=== PATIENT | female | born 1955 | race Caucasian/White ===

== ENCOUNTER 2016-06-12 07:10 | Day surgery (SDC) | payer OTHER ==
[~2016-06-12] VITALS: Ht 157.5 cm; Wt 60.3 kg
[~2016-06-12 07:10] MED LIST: 0.9% Sodium Chloride 1,000 ML IV SCH; ESTR0.5T; MEDR2.5T7 PO; Sodium Chloride LOK Flush 10 mL Syringe IV PRN; fentaNYL-PF 50 mCg/mL 2 mL Inj IVPUSH PRN
[2016-06-12 07:38] VITALS: BP 145/92; PULSE 78; RESP 14; O2SAT 99
[2016-06-12 08:18] VITALS: BP 125/71; PULSE 65; RESP 14; O2SAT 97
[2016-06-12 08:30] VITALS: BP 110/73; PULSE 72; RESP 14; O2SAT 98
[2016-06-12 08:37] VITALS: BP 111/79; PULSE 74; RESP 14; O2SAT 98
--- NOTE | 2016-06-12 08:39 | ENDO ---
[address] [address] ENDOSCOPY PROCEDURE PATIENT: JOHNNIE AMADO : 1955 MR#: [id number] ADMIT: 06/12/2016 JOB ID: [id number] DATE: 06/12/2016 PROCEDURE: Colonoscopy. INDICATIONS: Screening. The patient's ASA classification was 1. Mallampati score was 1. MEDICATIONS: 1. Versed 5 mg. 2. Fentanyl 100 mcg. INSTRUMENT USED: PCF H 190 L. PREPARATION QUALITY: Was good. PROCEDURE DETAILS: After informed consent was obtained, the patient was brought into the GI suite, where she was placed on oxygen via nasal cannula and monitored with continuous pulse oximeter, telemetry and blood pressure monitoring. A time-out was performed. Then, she was placed in the left lateral decubitus position. Medications were administered for sedation. A digital rectal exam was performed, which was unremarkable. The colonoscope was then inserted into the rectum and advanced under direct visualization to the cecum, which was identified by the presence of the ileocecal valve and appendiceal orifice. Once the cecum was reached, the colonoscope was withdrawn back into the rectum as the mucosa and lumen were examined. In the rectum, retroflexion was performed. Following retroflexion, remaining air in the rectum was suctioned, and procedure was completed. FINDINGS: Normal examination from rectum to cecum. IMPRESSION: Normal colonoscopy. RECOMMENDATIONS: Repeat colonoscopy in 10 years, sooner if symptoms should dictate. COMPLICATIONS: None. ESTIMATED BLOOD LOSS: 0.
== END 2016-06-12 23:59 | disposition home or self-care (01) ==
LOC: END 07:10
PROVIDERS: ATTEND Internal Medicine Gastroenterology
PROC: 0DJD8ZZ Inspection of Lower Intestinal Tract, Via Natural or Artificial Opening Endoscopic (ICD-10-PCS; principal; 2016-06-12 08:00)
DX: Z12.11 Encounter for screening for malignant neoplasm of colon (principal)
CPT/HCPCS: G0121; G0500; J2250; J3010; J7030